=== PATIENT | female | born 1980 | race Two or more races ===

== ENCOUNTER 2016-05-13 07:27 | Day surgery (SDC) | payer BC, MEDICAID ==
[~2016-05-13 07:27] MED LIST: PROPOFOL INJ 200 MG/20 ML VIAL IV ONE
[2016-05-13 09:08] VITALS: BP 110/73
--- NOTE | 2016-05-13 13:40 | Operative Report ---
Operative Report DATE OF SURGERY: 05/13/16 Operative Report: The risks benefits and alternatives of the procedure explained to the patient in detail and informed consent is obtained that GIF Olympus video scope was inserted into the patient's mouth and hypopharynx the esophagus is identified intubated and insufflated the scope was then advanced through the esophagus stomach and duodenum retroflexion maneuver is done the esophagus stomach and first and second portions of the duodenum examined PREOPERATIVE DIAGNOSIS: Dyspepsia POSTOPERATIVE DIAGNOSIS: Gastritis status post biopsy rule out Helicobacter pylori OPERATION: EGD with biopsy SURGEON: ADI RAMOS ANESTHESIA: LMAC TISSUE REMOVED OR ALTERED: Gastric mucosal specimens obtained COMPLICATIONS: None. ESTIMATED BLOOD LOSS: done. INTRAOPERATIVE FINDINGS: Normal esophagus. First and second portions of the duodenum normal PROCEDURE: Patient tolerated the procedure well. No immediate postprocedure complications are noted. Patient is discharged in good condition. Discharge date 05/13/2016. Discharge diet: Regular. Discharge activity: Regular. We'll await on biopsies. 2-3 week follow-up to discuss findings. Patient is instructed to call the office or proceed to the emergency room should there be any further problems or questions.
== END 2016-05-13 09:10 | disposition home or self-care (01) ==
LOC: END 07:27
PROVIDERS: ATTEND Internal Medicine Gastroenterology
PROC: 0DB68ZX Excision of Stomach, Via Natural or Artificial Opening Endoscopic, Diagnostic (ICD-10-PCS; principal; 2016-05-13 08:30)
DX: K29.50 Unspecified chronic gastritis without bleeding (principal); K21.9 Gastro-esophageal reflux disease without esophagitis; G43.901 Migraine, unspecified, not intractable, with status migrainosus; R73.03 Prediabetes; F90.9 Attention-deficit hyperactivity disorder, unspecified type; F42.9 Obsessive-compulsive disorder, unspecified; F41.1 Generalized anxiety disorder; Z79.899 Other long term (current) drug therapy; Z79.891 Long term (current) use of opiate analgesic; Z88.5 Allergy status to narcotic agent
CPT/HCPCS: 43239; 82962; 88342 ×2; 88305 ×2; J2704; 740

== ENCOUNTER 2016-06-04 08:06 | Day surgery (SDC) | payer BC ==
[2016-06-04] MEDS ORDERED: OXYCODONE HCL IR 5 MG TABLET PO ONE (09:15)
[2016-06-04] MEDS ORDERED: OXYCODONE-ACETAMINOPHEN 5-325 MG TABLET PO ONE (09:15)
[2016-06-04 09:29] LABS: PARTIAL THROMBOPLASTIN TIME 31.5 SEC (23.5-35.8)
[2016-06-04 11:13] LABS: APPEARANCE ALL TUBES CLEAR
[2016-06-04 11:16] LABS: GLUCOSE,CSF 65 mg/dL (40-70)
[2016-06-04 11:19] LABS: RBC AVERAGE 16.5; RBC DILUENT USED NONE USED; RBC DILUTION FACTOR 1; RBC SIDE 1 15; RBC SIDE 2 18
[2016-06-04 11:20] LABS: TOTAL RBC SQUARES COUNTED 225; WHITE BLOOD CELL,CSF 1 /uL (0-5)
[2016-06-04 14:45] VITALS: BP 109/74
[2016-06-05 15:38] LABS: ALBUMIN CSF 15 mg/dL (11-48); ALBUMIN SERUM 3.7 g/dL (3.5-5.5); CSF IGG INDEX 0.5 (0.0-0.7); IGG SYNTHESIS RATE CSF -1.8 mg/day (-9.9 TO +3.3); IGG/ALBUMIN RATIO CSF 0.15 (0.00-0.25); IMMUNOGLOBULIN G CSF 2.2 mg/dL (0.0-8.6); IMMUNOGLOBULIN G SERUM 990 mg/dL (700-1600)
[2016-06-06 07:33] LABS: CSF/SERUM ALBUMIN INDEX 4 (0-8)
== END 2016-06-04 13:10 | disposition home or self-care (01) ==
LOC: RAD 08:06
PROVIDERS: ATTEND Specialist
PROC: 009U3ZX Drainage of Spinal Canal, Percutaneous Approach, Diagnostic (ICD-10-PCS; principal; 2016-06-04)
DX: G35 Multiple sclerosis (principal); E11.9 Type 2 diabetes mellitus without complications; I10 Essential (primary) hypertension
CPT/HCPCS: 36415; 62270; 77003; 82784; 82945; 83916; 84157; 85610; 85730; 87070; 87205; 89050